=== PATIENT | female | born 1975 | race African-American/Black ===

== ENCOUNTER 2020-12-15 09:01 | Emergency (ER) | payer OTHER ==
[~2020-12-15 09:01] MED LIST: IBUPROFEN600 MG PO; NORCO 5-325 TA1 EACH PO; ZOFRAN ODT4 MG PO
[2020-12-15 10:43] LABS: HEMOGLOBIN 14.9 gm/dl (12.3-15.3); RED BLOOD COUNT 4.91 M/UL (4.00-5.10); WHITE BLOOD COUNT 6.1 K/UL (4.5-11.0)
[2020-12-15 11:05] LABS: BUN/CREATININE RATIO 12 (0-10)
[2020-12-15] MEDS ORDERED: OMNICEF 300 MG300 MG PO (15:44)
[2020-12-25] MEDS ORDERED: VENTOLIN HFA 66.7 GM INH (12:53)
[2020-12-25] MEDS ORDERED: NORVASC10 MG PO (12:54)
[2020-12-25] MEDS ORDERED: VITAMIN C500 M4 PO (12:54)
[2020-12-25] MEDS ORDERED: TOPAMAX50 MG PO (12:54)
[2020-12-25] MEDS ORDERED: LOVASTATIN20 MG PO (12:54)
[2020-12-25] MEDS ORDERED: APPLE CIDER VI500 MG PO (12:55)
[2020-12-25] MEDS ORDERED: GARLIC1000 MG PO (12:55)
[2020-12-25] MEDS ORDERED: PROPRANOLOL HCL40 MG PO (12:56)
[2020-12-25] MEDS ORDERED: ZOFRAN 4 MG TAB4 MG PO (13:00)
[2020-12-25] MEDS ORDERED: POTASSIUM PO (13:01)
[2020-12-25] MEDS ORDERED: IBU600 MG PO (13:01)
[2020-12-26] MEDS ORDERED: PERCOCET 5-3251 EACH PO (12:32)
== END 2020-12-15 16:00 | disposition home or self-care (01) ==
LOC: ER1 09:01
PROVIDERS: Emergency Medicine
DX: K80.20 Calculus of gallbladder without cholecystitis without obstruction (principal); N20.0 Calculus of kidney; E87.6 Hypokalemia; I10 Essential (primary) hypertension; J45.909 Unspecified asthma, uncomplicated; Z90.710 Acquired absence of both cervix and uterus; Z98.51 Tubal ligation status
CPT/HCPCS: 76705; 80053; 81001; 83690; 85025; 87086; 96374; 96375; 99284; J2270; J2405

== ENCOUNTER → 2020-12-25 | Outpatient (CLI) | payer OTHER ==
[~2020-12-25] MED LIST changes: +APPLE CIDER VI500 MG PO; +GARLIC1000 MG PO; +IBU600 MG PO; +LOVASTATIN20 MG PO; +NORVASC10 MG PO; +OMNICEF 300 MG300 MG PO; +PERCOCET 5-3251 EACH PO; +POTASSIUM PO; +PROPRANOLOL HCL40 MG PO; +TOPAMAX50 MG PO; +VENTOLIN HFA 66.7 GM INH; +VITAMIN C500 M4 PO; +ZOFRAN 4 MG TAB4 MG PO
[2020-12-25 13:21] LABS: BUN/CREATININE RATIO 10 (0-10)
== END ==
LOC: OPSV2 12:00
PROVIDERS: Anesthesiology
DX: Z01.818 Encounter for other preprocedural examination (principal); R94.31 Abnormal electrocardiogram [ECG] [EKG]; I49.8 Other specified cardiac arrhythmias
CPT/HCPCS: 36415; 80048; 93005

== ENCOUNTER → 2020-12-26 | Day surgery (SDC) | payer OTHER | END | disposition home or self-care (01) | LOC: OR 07:25 | DX: K80.64 Calculus of gallbladder and bile duct with chronic cholecystitis without obstruction (principal); N91.2 Amenorrhea, unspecified; G43.719 Chronic migraine without aura, intractable, without status migrainosus; N81.6 Rectocele; N95.2 Postmenopausal atrophic vaginitis; B37.3 Candidiasis of vulva and vagina; Z79.891 Long term (current) use of opiate analgesic; Z79.899 Other long term (current) drug therapy; Z88.1 Allergy status to other antibiotic agents; Z88.5 Allergy status to narcotic agent; Z90.710 Acquired absence of both cervix and uterus; Z98.51 Tubal ligation status | CPT/HCPCS: J0690; J1100; J2001; J2250; J2405; J2704; J2710; J3010; J7030; J7120 ==